=== PATIENT | female | born 2000 | race Caucasian/White ===

== ENCOUNTER 2025-08-05 09:19 | Emergency (ER) | payer OTHER, SELFPAY ==
[2025-08-05] VITALS (9 sets, daily range): BP systolic 101–126; BP diastolic 75–81; PULSE 64–69
[2025-08-05 09:47] LABS: Hematocrit 36.7 % (37.0-47.0); Hemoglobin 11.6 g/dL (12.0-16.0); Mean Corp Hgb Conc. 31.6 g/dL (33.0-37.0); Mean Corpuscular Volume 84.8 fL (81.0-99.0); Nucleated Red Blood Cells % 0 %; Platelet Count 280 10^3/uL (130-400); Red Cell Dist. Width 13.2 % (11.5-14.5)
[2025-08-05 10:02] LABS: ALT (SGPT) 22 U/L (0-35); AST (SGOT) 29 U/L (14-36); Albumin 4.7 g/dl (3.5-5.0); Alkaline Phosphatase 50 U/L (38-126); Blood Urea Nitrogen 8 mg/dl (7-17); Calcium 9.4 mg/dl (8.4-10.2); Carbon Dioxide 23 mmol/L (22-30); Chloride 110 mmol/L (98-107); Glucose 89 mg/dl (70-99); Potassium 4.2 mmol/L (3.5-5.1); Sodium 141 mmol/L (135-145); Total Protein 7.5 g/dl (6.3-8.2); eGFR > 60.00
--- NOTE | 2025-08-05 12:03 | ED.GENMED ---
History of Present Illness
<John Grover MD, Resident - Last Filed: 08/05/25 14:33>
General
Chief Complaint: Fainting/Passed Out
Time Seen by Provider: 08/05/25 11:10
History of Present Illness
History of Present Illness:
Patient is a 24-year-old female with PMH of asthma and anxiety who presents to the [place] ED with syncope this morning. Patient lost consciousness in the kitchen at her home soon after waking around 8:20 AM this morning. Patient reports
feeling her 'heart pounding', tachycardia, and lightheadedness prior to losing consciousness. Patient's mother found her unconscious on the floor an unspecified amount of time and later, estimated to be approximately 5�10 minutes. No seizure-like
activity reported. Patient was mildly confused but started asking questions soon after awakening. Patient has a mild (3/10 intensity) headache with a 2 cm area of swelling and tenderness near her left frontal hairline. Patient works at a local
[employer] and was up until approximately 4 AM last night. She had 1 drink of alcohol last night. No drug use. Reports she did not hydrate enough while working last night. No recent illnesses or sick contacts. No personal history of seizures or
cardiac problems. Cousin has a history long QT syndrome. Based on family history, patient herself had a workup with a ep specialist as a child to include an EKG, echocardiogram, and stress test, which were unremarkable. Patient reports occasional
chest pain and shortness of breath since 2020.
Past History
<John Grover MD, Resident - Last Filed: 08/05/25 14:33>
Past History
ED Past Medical History: Asthma and Psychiatric (Anxiety)
ED Past Surgical History: None
Social History
Alcohol: Occasional
Drug: None
Living: with family
Employment: Employed
Family History
Family History: Other (Long QT syndrome (cousin))
Review of Systems
<John Grover MD, Resident - Last Filed: 08/05/25 14:33>
Review of Systems
Constitutional: Denies fever, fatigue or chills
Respiratory: Denies trouble breathing
Cardiac: Reports chest pain, palpitations and syncope
ABD/GI: Denies abdominal pain, nausea, vomiting or diarrhea
Musculoskeletal: Reports other (Mild neck stiffness); Denies neck pain
Neurological: Reports headache; Denies weakness or numbness
Phy Exam
<John Grover MD, Resident - Last Filed: 08/05/25 14:33>
Physical Exam
Physical Exam:
General: NAD. Conversant.
CV: RRR. S1, S2 noted. No M/R/G. No LE edema.
Neuro: A&O x 3. Motor, sensory intact all extremities. No upper or lower extremity drift. EOMI. Visual castaneda intact. No dysmetria. No dysdiadochokinesia. No dysarthria. CN II through XII intact.
Pulm: CTAB. No wheezes or crackles.
GI: SNT. ND.
Psych: Calm.
Course
<John Grover MD, Resident - Last Filed: 08/05/25 14:33>
Orders/Labs/Results
Orders:
Orders
08/05/25 09:28
EKG [Electrocardiogram (*1)] Urgent
Reason for Study: Syncope
EKG- Treatment ONCE
08/05/25 09:35
Comprehensive Metabolic Panel Urgent
HCG, Serum Qualitative Screen Urgent
Comment: ADD ON
08/05/25 09:36
Complete Blood Count/With Diff Urgent
08/05/25 12:03
Orthostatic VS- Treatment ONCE
08/05/25 12:39
Test Result ONCE
08/05/25 12:40
CT Head W/o Iv Contrast Urgent
Comment:
Reason For Exam: Syncope with head strike, headache
08/05/25 13:04
Add On- LAB Urgent
Tests Added?: HCG, serum
Abnormal Lab Results
08/05/25 08/05/25
09:35 09:36
Hgb 11.6 L g/dL
(12.0-16.0)
Hct 36.7 L %
(37.0-47.0)
MCH 26.8 L pg
(27.0-31.0)
MCHC 31.6 L g/dL
(33.0-37.0)
Chloride 110 H mmol/L
(98-107)
08/05/25 09:36
08/05/25 09:35
Vital Signs
Initial and Last Documented VS:
Initial Vital Signs
Temp Pulse Resp BP Pulse Ox
97.7 F 63 17 122/78 100
08/05/25 09:23 08/05/25 09:23 08/05/25 09:23 08/05/25 09:23 08/05/25 09:23
Last Documented Vital Signs
Temp Pulse Resp BP Pulse Ox
97.7 F 68 20 115/81 98
08/05/25 09:23 08/05/25 13:45 08/05/25 13:45 08/05/25 13:33 08/05/25 13:45
<Yair Nova, DO - Last Filed: 08/05/25 14:32>
Orders/Labs/Results
Orders:
Orders
08/05/25 09:28
EKG [Electrocardiogram (*1)] Urgent
Reason for Study: Syncope
EKG- Treatment ONCE
08/05/25 09:35
Comprehensive Metabolic Panel Urgent
HCG, Serum Qualitative Screen Urgent
Comment: ADD ON
08/05/25 09:36
Complete Blood Count/With Diff Urgent
08/05/25 12:03
Orthostatic VS- Treatment ONCE
08/05/25 12:39
Test Result ONCE
08/05/25 12:40
CT Head W/o Iv Contrast Urgent
Comment:
Reason For Exam: Syncope with head strike, headache
08/05/25 13:04
Add On- LAB Urgent
Tests Added?: HCG, serum
Abnormal Lab Results
08/05/25 08/05/25
09:35 09:36
Hgb 11.6 L g/dL
(12.0-16.0)
Hct 36.7 L %
(37.0-47.0)
MCH 26.8 L pg
(27.0-31.0)
MCHC 31.6 L g/dL
(33.0-37.0)
Chloride 110 H mmol/L
(98-107)
08/05/25 09:36
08/05/25 09:35
Vital Signs
Initial and Last Documented VS:
Initial Vital Signs
Temp Pulse Resp BP Pulse Ox
97.7 F 63 17 122/78 100
08/05/25 09:23 08/05/25 09:23 08/05/25 09:23 08/05/25 09:23 08/05/25 09:23
Last Documented Vital Signs
Temp Pulse Resp BP Pulse Ox
97.7 F 68 20 115/81 98
08/05/25 09:23 08/05/25 13:45 08/05/25 13:45 08/05/25 13:33 08/05/25 13:45
<John Grover MD, Resident - Last Filed: 08/05/25 14:33>
MDM/Problems Addressed
Differential Diagnosis Includes:
Vasovagal syncope
Orthostatic hypotension
Arrhythmia
Seizure
Hypoglycemia
Structural heart disease
Anemia
MDM/Problems Addressed:
Assessment: Patient is a 24-year-old female with PMH of asthma and anxiety who presents to the [place] ED with unwitnessed syncope at home that was preceded by palpitations, tachycardia, and lightheadedness and resulted in the patient striking
her head before being found on the ground unconscious by her mother. Current mild chest tightness and headache, otherwise no symptoms. No seizure-like activity or postictal state reported by mother. Small (2 cm) area of swelling and tenderness on
left frontal hairline, physical exam otherwise unremarkable. EKG, labs, orthostatics, and CT head unremarkable. Suspect vasovagal syncope.
Plan:
#Syncope
EKG, orthostatics
Labs: CBC, CMP, hCG
Imaging: CT head w/o contrast
Recommend outpatient follow-up with PCP and/or cardiology
<John Grover MD, Resident - Last Filed: 08/05/25 14:33>
*Pulse Oximetry
SaO2: 100
Oxygen Mode of Delivery: Room air
Patient hypoxic: no
*Critical Care Note
Total Time (30-74mins, 75-104mins- exclusive of procedures): Not Applicable
ED Attending Note
<John Grover MD, Resident - Last Filed: 08/05/25 14:33>
-
Portions of this chart may have been created with voice recognition software.� Occasional wrong word or��sound alike� substitutions may have occurred due to the inherent limitations of voice recognition software.
<Yair Nova, DO - Last Filed: 08/05/25 14:32>
ED Attending Note
Patient seen and examined by attending physician: Yes
I performed a history and physical exam of patient and discussed management with resident, I reviewed resident's note and agree with documented findings and plan of care.: Yes
ED Attending Note:
I have reviewed and agree with history and treatment plan by John Grover MD. My exam revealed
Physical Exam
General: no apparent distress, not acutely ill
Neck: supple. no meningeal signs. normal posterior pharynx
Heart: s1/s2 regular rate and rhythm, no murmur. equal radial
pulses.
HEENT: Pupils equal round reactive to light, EOMI, mild contusion left parietal frontal region. No signs of depressed skull fracture
Lungs: no acute respiratory distress. clear bilaterally
Abdomen: normal bowel sounds. not tender. no CVAT
Neuro: alert and oriented. no focal neurological deficits cranial nerves II through XII intact
Skin: no rash
Psychiatric: well kept. interactive and cooperative
Extremities: no edema. no calf tenderness. negative homans. good distal pulses
24-year-old female with syncope episode, appears to be vasovagal. This is the third such episode for patient. Do not suspect dysrhythmia. Patient stable for discharge and follow-up with cardiology. Return precautions given.
Discharge Plan
Departure
Patient Disposition: Home (Routine Discharge)
Date of Disposition: 08/05/25
Time of Disposition: 14:25
Patient with high blood pressure during this ER visit?: No
Condition: Good
Covid-19: Not Applicable
Discharge Problem:
Syncope
Instructions: Syncope (Fainting) (DC), Head injury in adults
Prescriptions:
No Action
albuterol sulfate 8.5 GM HFA aerosol inhaler
8.5 gm inhalation Q4H PRN (Reason: sob)
Referrals:
Yonathan Garcia MD [Family Provider, Family Practice]
Rodrigo Fleming MD [Active, Cardiology]
Activity Restrictions/Additional Instructions:
Follow-up with PCP and cardiology in the outpatient setting
Return to ED if current syncope, chest pain, shortness of breath, or other acute symptoms
Interventions
Interventions:
*Risk Screen - Suicide Last Done: 08/05/25 09:27
*General Assessment Last Done: 08/05/25 09:27
*Neglect/Abuse Screening Last Done: 08/05/25 09:27
*ED COVID-19 Vaccine History Last Done: 08/05/25 09:27
*ED Influenza Vaccine History Last Done: 08/05/25 09:27
ED- Cardiac Assessment Last Done: 08/05/25 11:53
ED- Neurological Assessment Last Done: 08/05/25 11:53
Discharge Date and Time
Print Language: NIGERIEN
[2025-08-05 13:46] LABS: HCG, Serum Qualitative Screen Negative
== END 2025-08-05 14:57 | disposition home or self-care (01) ==
LOC: EMR 09:19
PROVIDERS: EMERGENCY PHYSICIAN Emergency Medicine; FAMILY PHYSICIAN Family Medicine
DX: R55 Syncope and collapse (principal); J45.909 Unspecified asthma, uncomplicated; F41.9 Anxiety disorder, unspecified
CPT/HCPCS: 99284; 70450; 80053; 84703; 85025; 93005